=== PATIENT | male | born 1970 | race Caucasian/White ===

== ENCOUNTER 2017-12-26 06:06 | Emergency (ER) | payer OTHER ==
[2017-12-26 06:09] VITALS: BP 179/111; PULSE 68; RESP 20; TEMP 97.2; O2SAT 100
[2017-12-26] MEDS ORDERED: AUGM875T3 PO (06:18)
[2017-12-26] MEDS ORDERED: AMOX875T PO (06:18)
[2017-12-26] MEDS ORDERED: FLUT1SPR5 EACH NARE (06:18)
[2017-12-26] MEDS ORDERED: ONDANSETRON HCL 4 MG/2 ML VIAL IV PUSH ONE (06:30)
[2017-12-26] MEDS ORDERED: SODIUM CHLORIDE 0.9% FLUSH 10 ML FLUSH IV FLUSH PRN (07:00)
[2017-12-26] MEDS ORDERED: SODIUM CHLOR 0.9% 1000 ML INJ 1,000 ML IV SCH (07:00)
[2017-12-26] MEDS ORDERED: MORPHINE SULFATE 4 MG/ML INJ IV PUSH ONE (07:00)
[2017-12-26] MEDS ORDERED: KETOROLAC TROMETHAMINE 30 MG/ML (IVP) VIAL IVP ONE (07:00)
[2017-12-26 07:05] LABS: AUTOMATED NEUTROPHIL # 5.8 TH/MM3 (1.8-7.7); BASOPHIL # 0.1 TH/MM3 (0-0.2); BASOPHIL % 0.6 % (0.0-2.0); EOSINOPHIL # 0.1 TH/MM3 (0-0.4); EOSINOPHIL % 1.1 % (0.0-4.0); HEMOGLOBIN 14.9 GM/DL (13.0-17.0); LYMPH % 29.7 % (9.0-44.0); LYMPHOCYTE # 2.8 TH/MM3 (1.0-4.8); MEAN CELL VOLUME 87.1 FL (80.0-100.0); MEAN CORPUSCULAR HEMOGLOBIN 30.2 PG (27.0-34.0); MEAN CORPUSCULAR HGB CONC 34.7 % (32.0-36.0); MEAN PLATELET VOLUME 7.6 FL (7.0-11.0); MONOCYTE # 0.7 TH/MM3 (0-0.9); NEUT % 61.6 % (16.0-70.0); PLATELET COUNT 367 TH/MM3 (150-450); RED BLOOD COUNT 4.94 MIL/MM3 (4.50-5.90); RED CELL DISTRIBUTION WIDTH 12.5 % (11.6-17.2); WHITE BLOOD COUNT 9.4 TH/MM3 (4.0-11.0)
--- NOTE | 2017-12-26 07:09 | PD ---
HPI Chief Complaint: Abdominal Pain Time Seen by Provider: 06:55 Travel History International Travel<30 days: No Contact w/Intl Traveler<30days: No Traveled to known affect area: No History of Present Illness HPI The patient is a 47-year-old male who presents emergency department for left flank pain. The patient was awakened at 3 AM with left flank pain and the need to have a bowel movement. The patient did have a bowel movement, however, was unsuccessful. He then took Dulcolax and developed left flank pain. He then developed nausea followed by vomiting and subsequent dry heaves. He also complained of one episode of orange to pink urine, possibly hematuria. The patient denies any history nephrolithiasis or diverticulitis. He does have a history of constipation for which she sees Dr. Nobles. He does not have a primary physician. He denies any fever, chills, or sweats. He denies any previous abdominal surgeries. Symptoms are moderate. No alleviating or exacerbating factors. The pain is sharp, starts in the left mid back and radiates to the anterior left aspect of the abdomen. [facility] Past Medical History Medical History: Denies Significant Hx Past Surgical History Surgical History: No Previous Surgery Social History Alcohol Use: Yes (almost daily) Tobacco Use: No Substance Use: No Allergies-Medications (Allergen,Severity, Reaction): Coded Allergies: No Known Allergies (Unverified , 12/26/17) Reported Meds & Prescriptions Reported Meds & Active Scripts Active Reported Flonase Nasal [place] (Fluticasone Nasal [place]) 50 Mcg/Act [place] 50 Mcg EACH NARE BID Augmentin (Amoxicillin-Clavulanate) 875-125 Mg Tab 1 Tab PO BID Review of Systems Except as stated in HPI: all other systems reviewed are Neg General / Constitutional: No: Fever Cardiovascular: No: Chest Pain or Discomfort Respiratory: No: Shortness of Breath Gastrointestinal: Positive: Nausea, Vomiting, Abdominal Pain, Constipation, No : Diarrhea Genitourinary: Positive: Hematuria, Flank Pain Skin: No Rash Physical Exam Narrative GENERAL: Awake, alert, pleasant 47-year-old male who appears his stated age and is in no acute respiratory distress. SKIN: Focused skin assessment warm/dry. HEAD: Atraumatic. Normocephalic. EYES: No injection or drainage. ENT: No nasal bleeding or discharge. Mucous membranes pink and moist. NECK: Trachea midline. No JVD. CARDIOVASCULAR: Regular rate and rhythm. No murmur appreciated. RESPIRATORY: No accessory muscle use. Clear to auscultation. Breath sounds equal bilaterally. GASTROINTESTINAL: Abdomen soft, non-tender, nondistended. No rebound, guarding , rigidity. Back: No CVA tenderness. MUSCULOSKELETAL: No obvious deformities. No clubbing. No cyanosis. No edema. NEUROLOGICAL: Awake and alert. No obvious cranial nerve deficits. Motor grossly within normal limits. Normal speech. PSYCHIATRIC: Appropriate mood and affect; insight and judgment normal. Data Data Last Documented VS Vital Signs Date Time Temp Pulse Resp B/P (MAP) Pulse Ox O2 Delivery O2 Flow Rate FiO2 12/26/17 07:51 18 12/26/17 07:16 99 Room Air 12/26/17 06:09 97.2 68 Orders Orders Complete Blood Count With Diff (12/26/17 06:29) Comprehensive Metabolic Panel (12/26/17 06:29) Lipase (12/26/17 06:29) Ondansetron Inj (Zofran Inj) (12/26/17 06:30) Urinalysis - C+S If Indicated (12/26/17 07:00) Ct Abd/Pel W/O Iv Contrast (12/26/17 07:00) Iv Access Insert/Monitor (12/26/17 07:00) Ecg Monitoring (12/26/17 07:00) Oximetry (12/26/17 07:00) Morphine Inj (Morphine Inj) (12/26/17 07:00) Sodium Chlor 0.9% 1000 Ml Inj (Ns 1000 M (12/26/17 07:00) Sodium Chloride 0.9% Flush (Ns Flush) (12/26/17 07:00) Ketorolac Inj (Toradol Inj) (12/26/17 07:00) Electrocardiogram (12/26/17 06:17) Labs Laboratory Tests Test 12/26/17 06:35 12/26/17 07:45 White Blood Count 9.4 TH/MM3 Red Blood Count 4.94 MIL/MM3 Hemoglobin 14.9 GM/DL Hematocrit 43.0 % Mean Corpuscular Volume 87.1 FL Mean Corpuscular Hemoglobin 30.2 PG Mean Corpuscular Hemoglobin Concent 34.7 % Red Cell Distribution Width 12.5 % Platelet Count 367 TH/MM3 Mean Platelet Volume 7.6 FL Neutrophils (%) (Auto) 61.6 % Lymphocytes (%) (Auto) 29.7 % Monocytes (%) (Auto) 7.0 % Eosinophils (%) (Auto) 1.1 % Basophils (%) (Auto) 0.6 % Neutrophils # (Auto) 5.8 TH/MM3 Lymphocytes # (Auto) 2.8 TH/MM3 Monocytes # (Auto) 0.7 TH/MM3 Eosinophils # (Auto) 0.1 TH/MM3 Basophils # (Auto) 0.1 TH/MM3 CBC Comment DIFF FINAL Differential Comment Blood Urea Nitrogen 16 MG/DL Creatinine 1.43 MG/DL Random Glucose 157 MG/DL Total Protein 7.8 GM/DL Albumin 4.0 GM/DL Calcium Level 8.7 MG/DL Alkaline Phosphatase 100 U/L Aspartate Amino Transf (AST/SGOT) 33 U/L Alanine Aminotransferase (ALT/SGPT) 32 U/L Total Bilirubin 0.4 MG/DL Sodium Level 136 MEQ/L Potassium Level 4.2 MEQ/L Chloride Level 104 MEQ/L Carbon Dioxide Level 23.3 MEQ/L Anion Gap 9 MEQ/L Estimat Glomerular Filtration Rate 53 ML/MIN Lipase 134 U/L Urine Color YELLOW Urine Turbidity HAZY Urine pH 6.0 Urine Specific [place] 1.010 Urine Protein TRACE mg/dL Urine Glucose (UA) NEG mg/dL Urine Ketones 10 mg/dL Urine Occult Blood MOD Urine Nitrite NEG Urine Bilirubin NEG Urine Urobilinogen LESS THAN 2.0 MG/DL Urine Leukocyte Esterase NEG Urine RBC 52 /hpf Urine WBC 3 /hpf Urine Squamous Epithelial Cells <1 /hpf Urine Bacteria OCC /hpf Urine Mucus FEW /lpf Microscopic Urinalysis Comment CULT NOT INDICATED MDM Medical Decision Making Medical Screen Exam Complete: Yes Emergency Medical Condition: Yes Medical Record Reviewed: Yes Interpretation(s) EKG reveals normal sinus rhythm with a rate of 61. No ischemic changes or ectopy noted. Laboratory Tests Test 12/26/17 06:35 12/26/17 07:45 White Blood Count 9.4 TH/MM3 Red Blood Count 4.94 MIL/MM3 Hemoglobin 14.9 GM/DL Hematocrit 43.0 % Mean Corpuscular Volume 87.1 FL Mean Corpuscular Hemoglobin 30.2 PG Mean Corpuscular Hemoglobin Concent 34.7 % Red Cell Distribution Width 12.5 % Platelet Count 367 TH/MM3 Mean Platelet Volume 7.6 FL Neutrophils (%) (Auto) 61.6 % Lymphocytes (%) (Auto) 29.7 % Monocytes (%) (Auto) 7.0 % Eosinophils (%) (Auto) 1.1 % Basophils (%) (Auto) 0.6 % Neutrophils # (Auto) 5.8 TH/MM3 Lymphocytes # (Auto) 2.8 TH/MM3 Monocytes # (Auto) 0.7 TH/MM3 Eosinophils # (Auto) 0.1 TH/MM3 Basophils # (Auto) 0.1 TH/MM3 CBC Comment DIFF FINAL Differential Comment Blood Urea Nitrogen 16 MG/DL Creatinine 1.43 MG/DL Random Glucose 157 MG/DL Total Protein 7.8 GM/DL Albumin 4.0 GM/DL Calcium Level 8.7 MG/DL Alkaline Phosphatase 100 U/L Aspartate Amino Transf (AST/SGOT) 33 U/L Alanine Aminotransferase (ALT/SGPT) 32 U/L Total Bilirubin 0.4 MG/DL Sodium Level 136 MEQ/L Potassium Level 4.2 MEQ/L Chloride Level 104 MEQ/L Carbon Dioxide Level 23.3 MEQ/L Anion Gap 9 MEQ/L Estimat Glomerular Filtration Rate 53 ML/MIN Lipase 134 U/L Urine Color YELLOW Urine Turbidity HAZY Urine pH 6.0 Urine Specific [place] 1.010 Urine Protein TRACE mg/dL Urine Glucose (UA) NEG mg/dL Urine Ketones 10 mg/dL Urine Occult Blood MOD Urine Nitrite NEG Urine Bilirubin NEG Urine Urobilinogen LESS THAN 2.0 MG/DL Urine Leukocyte Esterase NEG Urine RBC 52 /hpf Urine WBC 3 /hpf Urine Squamous Epithelial Cells <1 /hpf Urine Bacteria OCC /hpf Urine Mucus FEW /lpf Microscopic Urinalysis Comment CULT NOT INDICATED Last Impressions Abdomen/Pelvis CT 12/26/17 0700 Signed Impressions: Service Date/Time: December 07:17 - CONCLUSION: 1. Mild obstructive uropathy on the left secondary to a proximal ureteral calculus measuring 2-4 mm. 2. 2 punctate nonobstructing left-sided renal calculi. Ben Novak MD Differential Diagnosis Differential diagnosis includes nephrolithiasis, hydronephrosis, diverticulitis , sigmoid volvulus, constipation, pancreatitis, pyelonephritis, UTI. Narrative Course IV was established, labs are drawn and sent, and the patient was placed on cardiac telemetry monitoring and continuous pulse oximetry monitoring. The patient received Zofran prior to my evaluation. The patient received morphine, Toradol, and IV fluids. UA was sent to lab. Noncontrast CT of the abdomen and pelvis was performed to evaluate for nephrolithiasis. CT the abdomen and pelvis is positive for mild hydronephrosis with proximal left ureteral stone. Creatinine is mildly elevated 1.43. UA reveals moderate blood and RBCs. The patient was reevaluated at 8:35 AM, his symptoms had improved. The patient be discharged home on ibuprofen, [place], Zofran, and Flomax. He is advised to follow-up with urology. He will be provided a strainer. Return if symptoms worsen or progress. Diagnosis Primary Impression: Nephrolithiasis Referrals: Jostin De Oliveira MD as needed Patient Instructions: General Instructions Additional Instructions: Please provide a patient a strainer at discharge. Medications as directed. Please provide the patient a copy of his CT results and lab results at discharge. Follow-up with urology. Med/Other Pt SpecificInfo: Prescription(s) given Scripts Ibuprofen (Ibuprofen) 600 Mg Tab 600 MG PO Q6H Y for Pain/Inflammation, #20 TAB 0 Refills Prov: Kadeem Hernández MD 12/26/17 Hydrocodone-Acetaminophen ([place]) 5 Mg-325 Mg Tab 1 TAB PO Q6H Y for PAIN, #15 TAB 0 Refills Prov: Kadeem Hernández MD 12/26/17 Tamsulosin (Flomax) 0.4 Mg Cap 0.4 MG PO HS for Manage Prostate Problems for 7 Days, #7 CAP 0 Refills Prov: Kadeem Hernández MD 12/26/17 Ondansetron Odt (Zofran Odt) 4 Mg Tab 4 MG SL Q6HR Y for Nausea/Vomiting, #10 TAB 0 Refills Prov: Kadeem Hernández MD 12/26/17 Disposition: 01 DISCHARGE HOME Condition: Stable Kadeem Hernández MD Dec 26, 2017 07:09
[2017-12-26 07:16] VITALS: O2SAT 99
[2017-12-26 07:30] LABS: ALKALINE PHOSPHATASE 100 U/L (45-117); ALT (GPT) 32 U/L (12-78); TOTAL BILIRUBIN ADULT 0.4 MG/DL (0.2-1.0); TOTAL PROTEIN 7.8 GM/DL (6.4-8.2)
[2017-12-26 07:36] LABS: AST (GOT) 33 U/L (15-37); BICARBONATE 23.3 MEQ/L (21.0-32.0); BLOOD UREA NITROGEN 16 MG/DL (7-18); CALCIUM 8.7 MG/DL (8.5-10.1); CHLORIDE 104 MEQ/L (98-107); CREATININE 1.43 MG/DL (0.60-1.30); GLOMERULAR FILTRATION RATE 53 ML/MIN (>89); GLUCOSE,RANDOM 157 MG/DL (74-106); SODIUM (NA) 136 MEQ/L (136-145)
--- NOTE | 2017-12-26 07:36 | RADRPT ---
EXAM DATE/TIME: 12/26/2017 07:17 [place] COMPARISON: No previous studies available for comparison. INDICATIONS : Left flank pain. ORAL CONTRAST: No oral contrast ingested. RADIATION DOSE: 19.64 CTDIvol (mGy) MEDICAL HISTORY : None SURGICAL HISTORY : None. ENCOUNTER: Initial ACUITY: 1 day PAIN SCALE: 8/10 LOCATION: Left flank TECHNIQUE: Volumetric scanning of the abdomen and pelvis was performed. Using automated exposure control and ad justment of the mA and/or kV according to patient size, radiation dose was kept as low as reasonably achievable to obtain optimal diagnostic quality images. DICOM format image data is available electro nically for review and comparison. FINDINGS: LOWER LUNGS: The visualized lower lungs are clear. LIVER: Homogeneous density without lesion. There is no dilation of the biliary tree. No calcified gallston es. SPLEEN: Normal size without lesion. PANCREAS: Within normal limits. KIDNEYS: Normal in size and shape. There is no mass, stone, or hydronephrosis on the right. Mild obstructive uropathy secondary to a proximal left ureteral calculus measuring 3-4 mm. Two punctate 2 mm nonobstru cting left renal calculi. ADRENAL GLANDS: Within normal limits. VASCULAR: There is no aortic aneurysm. BOWEL/MESENTERY: The stomach, small bowel, and colon demonstrate no acute abnormality. There is no free intraperitone al air or fluid. ABDOMINAL WALL: Within normal limits. RETROPERITONEUM: There is no lymphadenopathy. BLADDER: No wall thickening or mass. REPRODUCTIVE: Within normal limits. INGUINAL: There is no lymphadenopathy or hernia. MUSCULOSKELETAL: Within normal limits for patient age. CONCLUSION: 1. Mild obstructive uropathy on the left secondary to a proximal ureteral calculus measuring 2-4 mm. 2. 2 punctate nonobstructing left-sided renal calculi. Ben Novak MD on December 26, 2017 at 7:33 Board Certified Radiologist. This report was verified electronically.
[2017-12-26 07:51] VITALS: RESP 18
[2017-12-26 08:09] LABS: BACTERIA, URINE OCC /hpf; BILIRUBIN, URINE NEG (NEG); BLOOD, URINE MOD (NEG); GLUCOSE,URINE NEG (NEG); KETONE, URINE 10 mg/dL (NEG); MUCUS URINE FEW /lpf (OCC); NITRITE,URINE NEG (NEG); SQUAMOUS EPITHELIAL CELL URINE <1 /hpf (0-5); URINE COLOR YELLOW (YELLW/STRAW); URINE LEUKOCYTE ESTERASE NEG (NEG)
[2017-12-26] MEDS ORDERED: NORC5TAB PO (08:41)
[2017-12-26] MEDS ORDERED: IBUP-232 PO (08:41)
[2017-12-26] MEDS ORDERED: TAMS5CAP PO (08:41)
[2017-12-26] MEDS ORDERED: ZOFR4TAB3 SL (08:41)
--- NOTE | 2017-12-26 20:23 | EKG ---
Date Performed: 12/26/2017 Time Performed: 06:17:13 PTAGE: 47 years EKG: Sinus rhythm NORMAL ECG PREVIOUS TRACING : 12/14/2017 01.20 DOCTOR: Duy Cardenas Interpretating Date/Time 12/26/2017 20:16:26
== END 2017-12-26 09:30 | disposition home or self-care (01) ==
LOC: NEPE 06:06
DX: N13.2 Hydronephrosis with renal and ureteral calculous obstruction (principal); K59.00 Constipation, unspecified
CPT/HCPCS: 74176; 80053; 81001; 83690; 85025; 93005; 96374; 96375; 99285; J1885; J2270; J2405; J7030

== ENCOUNTER 2018-01-24 21:10 | Emergency (ER) | payer OTHER ==
[~2018-01-24] VITALS: Ht 177.8 cm; Wt 100.0 kg
[~2018-01-24 21:10] MED LIST: AUGM875T3 PO; FLUT1SPR5 EACH NARE; IBUP-232 PO; NORC5TAB PO; TAMS5CAP PO; ZOFR4TAB3 SL
[2018-01-24 22:17] VITALS: BP 147/86; PULSE 77; RESP 18; TEMP 98.4; O2SAT 98
[2018-01-25] MEDS ORDERED: KETOROLAC TROMETHAMINE 30 MG/ML (IVP) VIAL IV PUSH ONE (00:45)
[2018-01-25] MEDS ORDERED: SODIUM CHLOR 0.9% 1000 ML INJ 1,000 ML IV ONE ×2 (00:45→03:15)
[2018-01-25 01:07] LABS: BACTERIA, URINE OCC /hpf; BILIRUBIN, URINE NEG (NEG); BLOOD, URINE MOD (NEG); CALCIUM OXALATE CRYSTALS,URINE RARE /hpf; GLUCOSE,URINE NEG (NEG); KETONE, URINE 10 mg/dL (NEG); MUCUS URINE FEW /lpf (OCC); NITRITE,URINE NEG (NEG); PH, URINE 6.5 (5.0-8.5); SQUAMOUS EPITHELIAL CELL URINE <1 /hpf (0-5); URINE COLOR YELLOW (YELLW/STRAW); URINE LEUKOCYTE ESTERASE NEG (NEG)
[2018-01-25 01:08] LABS: AUTOMATED NEUTROPHIL # 10.4 TH/MM3 (1.8-7.7); BASOPHIL % 0.3 % (0.0-2.0); EOSINOPHIL % 0.1 % (0.0-4.0); HEMATOCRIT 42.3 % (39.0-51.0); HEMOGLOBIN 14.7 GM/DL (13.0-17.0); LYMPH % 10.9 % (9.0-44.0); LYMPHOCYTE # 1.4 TH/MM3 (1.0-4.8); MEAN CELL VOLUME 85.9 FL (80.0-100.0); MEAN CORPUSCULAR HEMOGLOBIN 29.8 PG (27.0-34.0); MEAN CORPUSCULAR HGB CONC 34.7 % (32.0-36.0); MEAN PLATELET VOLUME 7.6 FL (7.0-11.0); MONO % 6.5 % (0.0-8.0); MONOCYTE # 0.8 TH/MM3 (0-0.9); NEUT % 82.2 % (16.0-70.0); PLATELET COUNT 306 TH/MM3 (150-450); RED BLOOD COUNT 4.93 MIL/MM3 (4.50-5.90); RED CELL DISTRIBUTION WIDTH 12.6 % (11.6-17.2); WHITE BLOOD COUNT 12.7 TH/MM3 (4.0-11.0)
[2018-01-25 01:20] LABS: ALBUMIN 4.2 GM/DL (3.4-5.0); ALT (GPT) 37 U/L (12-78); AST (GOT) 19 U/L (15-37); BLOOD UREA NITROGEN 14 MG/DL (7-18); CALCIUM 8.7 MG/DL (8.5-10.1); CHLORIDE 101 MEQ/L (98-107); CREATININE 1.15 MG/DL (0.60-1.30); GLOMERULAR FILTRATION RATE 68 ML/MIN (>89); GLUCOSE,RANDOM 131 MG/DL (74-106); SODIUM (NA) 135 MEQ/L (136-145)
[2018-01-25 01:22] LABS: ALKALINE PHOSPHATASE 99 U/L (45-117); TOTAL BILIRUBIN ADULT 0.5 MG/DL (0.2-1.0); TOTAL PROTEIN 7.8 GM/DL (6.4-8.2)
--- NOTE | 2018-01-25 01:26 | PD ---
HPI Chief Complaint: Flank/Kidney Pain Time Seen by Provider: 23:58 Travel History International Travel<30 days: No Contact w/Intl Traveler<30days: No Traveled to known affect area: No History of Present Illness HPI pt has renal stone 3mm left seen on CT 1 week ago he says the pain comes and starts and then it subsides. He said it has moved 3 times since it was diagnosed. He says he can tell is moving when he is urine turns red and he gets severe radiating pain from the left flank towards the left abdomen. He has seen a urologist who is scheduled to see him on a follow-up on the he is taking hydrocodone and ibuprofen for pain and Flomax to help move the stone along. He is not vomiting he is not diaphoretic just having severe pain and hematuria PFSH Past Medical History Kidney Stones: Yes Immunizations Current: Yes Social History Alcohol Use: Yes (almost daily) Tobacco Use: No Substance Use: No Allergies-Medications (Allergen,Severity, Reaction): Coded Allergies: No Known Allergies (Unverified , 01/24/18) Reported Meds & Prescriptions Reported Meds & Active Scripts Active Ibuprofen 600 Mg Tab 600 Mg PO Q6H PRN Tramadol (Tramadol HCl) 50 Mg Tab 50 Mg PO Q6H PRN Ibuprofen 600 Mg Tab 600 Mg PO Q6H PRN [place] (Hydrocodone-Acetaminophen) 5 Mg-325 Mg Tab 1 Tab PO Q6H PRN Flomax (Tamsulosin HCl) 0.4 Mg Cap 0.4 Mg PO HS 7 Days Zofran Odt (Ondansetron Odt) 4 Mg Tab 4 Mg SL Q6HR PRN Reported Flonase Nasal [place] (Fluticasone Nasal [place]) 50 Mcg/Act [place] 50 Mcg EACH NARE BID Augmentin (Amoxicillin-Clavulanate) 875-125 Mg Tab 1 Tab PO BID Review of Systems Except as stated in HPI: all other systems reviewed are Neg Genitourinary: Positive: Hematuria (pain left abdo radiation to suprapubic ) , Flank Pain Physical Exam Narrative GENERAL: non toxic AOX3 SKIN: Warm and dry. HEAD: Atraumatic. Normocephalic. EYES: Pupils equal and round. No scleral icterus. No injection or drainage. ENT: No nasal bleeding or discharge. Mucous membranes pink and moist. NECK: Trachea midline. No JVD. CARDIOVASCULAR: Regular rate and rhythm. RESPIRATORY: No accessory muscle use. Clear to auscultation. Breath sounds equal bilaterally. GASTROINTESTINAL: Abdomen: left flank to left lower abdo pain ,,, MUSCULOSKELETAL: Extremities without clubbing, cyanosis, or edema. No obvious deformities. NEUROLOGICAL: Awake and alert. No obvious cranial nerve deficits. Motor grossly within normal limits. Five out of 5 muscle strength in the arms and legs. Normal speech. PSYCHIATRIC: Appropriate mood and affect; insight and judgment normal. Data Data Last Documented VS Vital Signs Date Time Temp Pulse Resp B/P (MAP) Pulse Ox O2 Delivery O2 Flow Rate FiO2 01/25/18 05:06 81 18 118/74 (89) 95 01/24/18 22:17 98.4 Orders Orders Ketorolac Inj (Toradol Inj) (01/25/18 00:45) Sodium Chlor 0.9% 1000 Ml Inj (Ns 1000 M (01/25/18 00:45) Urinalysis - C+S If Indicated (01/25/18 00:36) Comprehensive Metabolic Panel (01/25/18 00:36) Complete Blood Count With Diff (01/25/18 00:36) Morphine Inj (Morphine Inj) (01/25/18 01:30) Ondansetron Inj (Zofran Inj) (01/25/18 01:30) Sodium Chlor 0.9% 1000 Ml Inj (Ns 1000 M (01/25/18 03:15) Ed Discharge Order (01/25/18 04:48) Labs Laboratory Tests Test 01/25/18 00:50 White Blood Count 12.7 TH/MM3 Red Blood Count 4.93 MIL/MM3 Hemoglobin 14.7 GM/DL Hematocrit 42.3 % Mean Corpuscular Volume 85.9 FL Mean Corpuscular Hemoglobin 29.8 PG Mean Corpuscular Hemoglobin Concent 34.7 % Red Cell Distribution Width 12.6 % Platelet Count 306 TH/MM3 Mean Platelet Volume 7.6 FL Neutrophils (%) (Auto) 82.2 % Lymphocytes (%) (Auto) 10.9 % Monocytes (%) (Auto) 6.5 % Eosinophils (%) (Auto) 0.1 % Basophils (%) (Auto) 0.3 % Neutrophils # (Auto) 10.4 TH/MM3 Lymphocytes # (Auto) 1.4 TH/MM3 Monocytes # (Auto) 0.8 TH/MM3 Eosinophils # (Auto) 0.0 TH/MM3 Basophils # (Auto) 0.0 TH/MM3 CBC Comment DIFF FINAL Differential Comment Urine Color YELLOW Urine Turbidity CLEAR Urine pH 6.5 Urine Specific [place] 1.012 Urine Protein TRACE mg/dL Urine Glucose (UA) NEG mg/dL Urine Ketones 10 mg/dL Urine Occult Blood MOD Urine Nitrite NEG Urine Bilirubin NEG Urine Urobilinogen LESS THAN 2.0 MG/DL Urine Leukocyte Esterase NEG Urine RBC /hpf Urine WBC 3 /hpf Urine Squamous Epithelial Cells <1 /hpf Urine Calcium Oxalate Crystals RARE /hpf Urine Bacteria OCC /hpf Urine Mucus FEW /lpf Microscopic Urinalysis Comment CULT NOT INDICATED Blood Urea Nitrogen 14 MG/DL Creatinine 1.15 MG/DL Random Glucose 131 MG/DL Total Protein 7.8 GM/DL Albumin 4.2 GM/DL Calcium Level 8.7 MG/DL Alkaline Phosphatase 99 U/L Aspartate Amino Transf (AST/SGOT) 19 U/L Alanine Aminotransferase (ALT/SGPT) 37 U/L Total Bilirubin 0.5 MG/DL Sodium Level 135 MEQ/L Potassium Level 4.2 MEQ/L Chloride Level 101 MEQ/L Carbon Dioxide Level 27.0 MEQ/L Anion Gap 7 MEQ/L Estimat Glomerular Filtration Rate 68 ML/MIN MDM Medical Decision Making Medical Screen Exam Complete: Yes Emergency Medical Condition: Yes Differential Diagnosis Renal colic versus pyelonephritis versus ureter spasm versus obstructing stone hydronephrosis or other Narrative Course Patient is given Toradol and a liter of fluid still having some pain I give him Zofran and for morphine another liter fluid and he feels much better based on a 3 mm stone I do not feel it is necessary to CAT scan him again he has a follow- up with urologist and there is no sign of need for further intervention at this time discharged home with bupropion and 10 tramadol pills Diagnosis Primary Impression: Kidney stone Patient Instructions: General Instructions, Renal Colic (ED) Scripts Ibuprofen (Ibuprofen) 600 Mg Tab 600 MG PO Q6H Y for Pain/Inflammation, #40 TAB 0 Refills Prov: Reji Yang MD 01/25/18 Tramadol (Tramadol) 50 Mg Tab 50 MG PO Q6H Y for PAIN, #10 TAB 0 Refills Prov: Reji Yang MD 01/25/18 Disposition: 01 DISCHARGE HOME Reji Yang MD Jan 25, 2018 01:26
[2018-01-25] MEDS ORDERED: ONDANSETRON HCL 4 MG/2 ML VIAL IV PUSH ONE (01:30)
[2018-01-25] MEDS ORDERED: MORPHINE SULFATE 4 MG/ML INJ IV PUSH ONE (01:30)
[2018-01-25 02:01] VITALS: BP 135/80; PULSE 83; RESP 18; O2SAT 95
[2018-01-25] MEDS ORDERED: IBUP-232 PO (04:52)
[2018-01-25] MEDS ORDERED: TRAM50TA PO (04:52)
[2018-01-25 05:06] VITALS: BP 118/74
== END 2018-01-25 05:07 | disposition home or self-care (01) ==
LOC: NEPC 21:10
DX: N20.0 Calculus of kidney (principal)
CPT/HCPCS: 80053; 81001; 85025; 96361; 96374; 96375; 99284; J1885; J2270; J2405; J7030